=== PATIENT | male | born 1980 | race Caucasian/White ===

== ENCOUNTER 2017-01-25 17:45 | Emergency (ER) | payer OTHER | END 2017-01-25 18:38 | disposition home or self-care (01) | LOC: D.ER 17:45 | DX: S61.452A Open bite of left hand, initial encounter (principal); S61.451A Open bite of right hand, initial encounter; W54.0XXA Bitten by dog, initial encounter; Y93.89 Activity, other specified; Y92.89 Other specified places as the place of occurrence of the external cause; T14.8 Other injury of unspecified body region; F17.200 Nicotine dependence, unspecified, uncomplicated ==

== ENCOUNTER 2020-12-02 15:38 | Inpatient (IN) | payer SELFPAY ==
[~2020-12-02] VITALS: Ht 167.6 cm; Wt 75.0 kg
[2020-12-02 16:13] LABS: BASOPHILS 0.1 % (0-2); EOSINOPHILS 0.2 % (0-7); HEMATOCRIT 41.3 % (42.0-54.0); HEMOGLOBIN 13.3 g/dL (13.5-17.5); LYMPHOCYTES 3.2 % (15-50); MCH 26.7 pg (26.0-34.0); MCHC 32.2 g/dL (31.0-37.0); MCV 82.9 fL (80.0-100.0); MEAN PLATELET VOLUME 7.8 fL (7.4-10.4); MONOCYTES 0.4 % (2-11); NEUTROPHILS 96.1 % (40-80); PLATELET COUNT 307 10x3/uL (130-400); RBC 4.98 10x6/uL (4.20-6.10); RDW 14.1 % (11.5-14.5); WBC 9.6 10x3/uL (4.8-10.8)
[2020-12-02 16:16] LABS: UDS - AMPHET POSITIVE QUAL (NEGATIVE); UDS - BARB NEGATIVE QUAL (NEGATIVE); UDS - BENZO NEGATIVE QUAL (NEGATIVE); UDS - COCAINE NEGATIVE QUAL (NEGATIVE); UDS - OPIATE NEGATIVE QUAL (NEGATIVE); UDS - PCP NEGATIVE QUAL (NEGATIVE); UDS - THC NEGATIVE QUAL (NEGATIVE)
[2020-12-02 16:24] LABS: BILIRUBIN NEGATIVE (NEGATIVE); KETONE NEGATIVE mg/dL (< 1+); NITRITE NEGATIVE (NEGATIVE); PH 5.5 (5.0-8.0); UROBILINOGEN NORMAL mg/dL (< 2); WHITE CELLS - URINE 2 HPF (0-1)
[2020-12-02 16:25] LABS: CALC OSMOLALITY 275 mosm/kg (275-300); CALCIUM 9.1 mg/dL (8.5-10.1); CARBON DIOXIDE 25.2 mmol/L (21.0-32.0); CHLORIDE - SERUM 104 mmol/L (98-107); CREATININE - SERUM 1.6 mg/dL (0.6-1.3); GLUCOSE 110 mg/dL (74-106); POTASSIUM - SERUM 3.6 mmol/L (3.5-5.1); SODIUM 137 mmol/L (136-145); UREA NITROGEN 15 mg/dL (7-18); eGFR NON AFRICAN AMERICAN 51 mL/min (90-120)
[2020-12-02 16:30] LABS: INR 1.18 (0.85-1.17); PROTIME 13.9 SECONDS (11.6-15.0)
[2020-12-02 16:31] LABS: APTT 26.5 SECONDS (22.8-39.4)
[2020-12-02 16:43] LABS: ALBUMIN 2.5 g/dL (3.4-5.0); ALKALINE PHOSPHATASE 250 U/L (30-120); ALT (SGPT) 142 U/L (10-68); BILIRUBIN - TOTAL 0.51 mg/dL (0.2-1.3); CKMB 1.4 U/L (0.0-3.6); CREATINE KINASE 105 UL (21-232); PROTEIN - SERUM 5.8 g/dL (6.4-8.2); TROPONIN-I < 0.017 ng/mL (0.000-0.060)
[2020-12-02 18:16] VITALS: BP 96/61
[2020-12-02 18:30] LABS: INFLUENZA TYPE A NEGATIVE (NEGATIVE); INFLUENZA TYPE B NEGATIVE (NEGATIVE); SARS-CoV-2 ANTIGEN NEGATIVE- SARS-COV-2 (NEGATIVE)
[2020-12-02 19:07] VITALS: BP 100/66
[2020-12-02 20:00] VITALS: BP 96/54
[2020-12-02 20:13] LABS: MAGNESIUM - SERUM 1.4 mg/dL (1.8-2.4); THYROID STIMULATING HORMONE 6.03 uIU/mL (0.36-3.74)
[2020-12-02 21:00] VITALS: BP 94/50
--- NOTE | 2020-12-02 21:20 | NUR ---
PT TO [facility].
--- NOTE | 2020-12-02 21:41 | NUR ---
PT RETURNED FROM [facility].
[2020-12-02 21:45] VITALS: BP 103/61
[2020-12-03] VITALS (12 sets, daily range): BP systolic 84–106; BP diastolic 43–71; Ht 167.6 cm; Wt 75.0 kg
--- NOTE | 2020-12-03 04:32 | NUR ---
PT HAS NOT VOIDED SINCE BEFORE 1900 ON 12/03/20. STATES HE DOES NOT FEEL ANY URGE TO VOID. BLADDER SCAN DONE AND SHOWS 304ML IN BLADDER. PT STATES HE FEELS LIKE HE CAN URINATE AT THAT TIME. PRODUCED 300ML URINE.
[2020-12-03 04:48] LABS: MCH 26.2 pg (26.0-34.0); MCHC 31.1 g/dL (31.0-37.0); MCV 84.3 fL (80.0-100.0); MEAN PLATELET VOLUME 8.6 fL (7.4-10.4); RDW 14.3 % (11.5-14.5)
[2020-12-03 04:59] LABS: ALKALINE PHOSPHATASE 96 U/L (30-120); BILIRUBIN - TOTAL 0.37 mg/dL (0.2-1.3); CARBON DIOXIDE 21.7 mmol/L (21.0-32.0); CHLORIDE - SERUM 112 mmol/L (98-107); CREATININE - SERUM 1.4 mg/dL (0.6-1.3); GLUCOSE 85 mg/dL (74-106); MAGNESIUM - SERUM 1.1 mg/dL (1.8-2.4); SODIUM 142 mmol/L (136-145); eGFR NON AFRICAN AMERICAN 59 mL/min (90-120)
[2020-12-03 05:00] LABS: HEMATOCRIT 31.6 % (42.0-54.0); HEMOGLOBIN 9.8 g/dL (13.5-17.5); PLATELET COUNT 224 10x3/uL (130-400); RBC 3.75 10x6/uL (4.20-6.10); WBC 31.2 10x3/uL (4.8-10.8)
[2020-12-03 05:17] LABS: LYMPHOCYTES 7 % (15-50); MONOCYTES 1 % (2-11); NEUTROPHILS 85 % (40-80); PLATELET ESTIMATE NORMAL
[2020-12-03 05:19] LABS: CALC OSMOLALITY 283 mosm/kg (275-300); UREA NITROGEN 19 mg/dL (7-18)
[2020-12-03 05:20] LABS: ALBUMIN 1.5 g/dL (3.4-5.0); ALT (SGPT) 99 U/L (10-68); CALCIUM 6.2 mg/dL (8.5-10.1); PROTEIN - SERUM 4.1 g/dL (6.4-8.2)
--- NOTE | 2020-12-03 05:35 | NUR ---
RECIEVED CRITIAL RESULT: CALCIUM 6.2. Kim DUBOSE APN NOTIFIED VIA PHONE. SHE ADVISED PT WOULD FOLLOW UP WITH RENAL THIS AM AND THEY WOULD GET IT CORRECTED.
[2020-12-03 05:47] LABS: CKMB 0.7 U/L (0.0-3.6); CREATINE KINASE 63 UL (21-232)
--- NOTE | 2020-12-03 15:16 | NUR ---
ZOSYN PIGGYBACK INFUSION COMPLETED AT 0940, VANCOMYCIN INFUSION COMPLETED AT 1000, AND NS INFUSION STOPPED IN ER AT 1520 AND CONT'D IN HOSPITAL.
--- NOTE | 2020-12-03 17:11 | NUR ---
ARRIVE TO ROOM VIA WHEELCHAIR FROM ER. ALERT AND ORIENTED X4. AMBULATES TO BED. GAIT STEADY. SCDs ON. IV NOT ON PUMP. INITIATE IV INFUSION ORDERED. NO SIGNS OF DISTRESS. CONTINUE ADMISSION PROCESS AND SAFETY PRECAUTIONS.
[2020-12-04] VITALS: BP 103/62
--- NOTE | 2020-12-04 03:29 | NUR ---
I have reviewed this patient and I concur with the Shift Assessment completed by the Licensed Practical Nurse today this shift.
[2020-12-04 04:00] VITALS: BP 107/66
--- NOTE | 2020-12-04 07:00 | NUR ---
Lying in bed with eyes closed, respirations slow/deep/evem. rouses easily with verbal stimulus, denies pain/other discomfort at this time, call light/phone/water within reach, no s/s of acute distress observed.
[2020-12-04 08:01] VITALS: BP 114/75
[2020-12-04 08:14] LABS: BASOPHILS 0.5 % (0-2); HEMATOCRIT 35.1 % (42.0-54.0); LYMPHOCYTES 6.5 % (15-50); MCHC 31.4 g/dL (31.0-37.0); MCV 82.8 fL (80.0-100.0); MEAN PLATELET VOLUME 9.1 fL (7.4-10.4); MONOCYTES 5.8 % (2-11); NEUTROPHILS 86.2 % (40-80); PLATELET COUNT 265 10x3/uL (130-400); RBC 4.25 10x6/uL (4.20-6.10); RDW 15.1 % (11.5-14.5); WBC 28.9 10x3/uL (4.8-10.8)
[2020-12-04 08:29] LABS: ANION GAP 10.8 mmol/L (8-16); BILIRUBIN - TOTAL 0.28 mg/dL (0.2-1.3); CALCIUM 9.7 mg/dL (8.5-10.1); CARBON DIOXIDE 24.6 mmol/L (21.0-32.0); CREATININE - SERUM 1.5 mg/dL (0.6-1.3); MAGNESIUM - SERUM 1.9 mg/dL (1.8-2.4); PHOSPHOROUS 2.1 mg/dL (2.5-4.9); POTASSIUM - SERUM 4.4 mmol/L (3.5-5.1); PROTEIN - SERUM 5.6 g/dL (6.4-8.2); VANCOMYCIN - RANDOM 16.8 ug/mL (10.0-20.0)
[2020-12-04 10:12] LABS: HEPATITIS C ANTIBODY >11.0 S/CO RAT (0.0-0.9)
[2020-12-04 12:01] VITALS: BP 103/64
[2020-12-04 15:50] VITALS: BP 113/77
[2020-12-04 16:15] LABS: URIC ACID 5.6 mg/dL (2.6-7.2)
--- NOTE | 2020-12-04 16:30 | NUR ---
Pt states he wants to check out AMAFELIPE notified
--- NOTE | 2020-12-04 16:45 | NUR ---
AMA papers signed and heather called.
--- NOTE | 2020-12-04 16:45 | NUR ---
Explained the dangers of leaving AMA such as worsening of condition, missing needed meds/treatments and even , pt states he wants to go home.
--- NOTE | 2020-12-04 17:45 | NUR ---
Pt DC'd AMA at this time via ambulation accompanied by hospital staff and family member, no s/s of acute distress observed at this time.
--- NOTE | 2020-12-04 17:48 | MORECARE ---
CASE MANAGEMENT DISCHARGE SUMMARY PATIENT: LISANDRA AUGUSTIN UNIT: [id number] ADM DATE: 12/02/20 AGE: 40 : 78 SEX: M ROOM/BED: D.210 AUTHOR: IVAN,DOC PHYSICIAN: REFERRING PHYSICIAN: SILVINA AGUIRRE DO DATE OF SERVICE: 12/04/20 Case Management Discharge Planning Summary DCP REVIEW SUMMARY ANTICIPATED D/C DATE: EXPECTED LOS : CASE STATUS: DCP Initiated INITIAL REVIEW: 12/02/2020 INITIAL REVIEWER: Pia Todd FINAL DISCHARGE DISPOSITION: 07 : Left AMA or Discontinued Care FINAL REVIEWER: Pia Todd FINAL REVIEW DATE: 12/04/2020 DCP [employer] Questions & Answers QUESTION: ANSWER : PATIENT: LISANDRA AUGUSTIN ENCOUNTER: [id number] MEDICAL RECORD#: [id number] ADMISSION DATE: 12/02/2020 DISCHARGE DATE: ATTENDING MD: SILVINA PIERCE : AGE: 40 MARITAL STATUS: S DC PLAN ID: [id number] FACILITY: [facility] PRINTED ON: 12/04/20 17:48 CT All edits/amendments must be made on the electronic document DICTATION DATE: 12/04/201747 CHARACTER ARTIST: NAMITA 12/04/201747 RPT#: [id number] DC DATE: STATUS: ADM IN [facility] [address] [place] [address] END OF REPORT
--- NOTE | 2020-12-06 09:58 | MORECARE ---
CASE MANAGEMENT DISCHARGE SUMMARY PATIENT: LISANDRA AUGUSTIN UNIT: [id number] ADM DATE: 12/02/20 AGE: 40 : 78 SEX: M ROOM/BED: D.210 AUTHOR: IVAN,DOC PHYSICIAN: REFERRING PHYSICIAN: SILVINA AGUIRRE DO DATE OF SERVICE: 12/06/20 Case Management Discharge Planning Summary DCP REVIEW SUMMARY ANTICIPATED D/C DATE: EXPECTED LOS : CASE STATUS: DCP Initiated INITIAL REVIEW: 12/02/2020 INITIAL REVIEWER: Pia Todd FINAL DISCHARGE DISPOSITION: 07 : Left AMA or Discontinued Care FINAL REVIEWER: Pia Todd FINAL REVIEW DATE: 12/04/2020 DCP [employer] Questions & Answers QUESTION: ANSWER : PATIENT: LISANDRA AUGUSTIN ENCOUNTER: [id number] MEDICAL RECORD#: [id number] ADMISSION DATE: 12/02/2020 DISCHARGE DATE: 12/04/2020 ATTENDING MD: SILVINA PIERCE : AGE: 40 MARITAL STATUS: S DC PLAN ID: [id number] FACILITY: [facility] PRINTED ON: 12/06/20 9:58 CT All edits/amendments must be made on the electronic document DICTATION DATE: 12/06/20957 SHOWER ENCLOSURE INSTALLER: NAMITA 12/06/20957 RPT#: [id number] DC DATE:12/04/20 STATUS: DIS IN [facility] [address] [place] [address] END OF REPORT
[2020-12-06 10:13] LABS: ANA REFLEX - DIRECT Negative (Negative)
== END 2020-12-04 17:45 | disposition left against medical advice (07) | DRG 871 ==
LOC: D.ER 15:38 → D.M2 18:16 → D.EDHOLD 18:16 → D.M2 12-03 13:47
PROVIDERS: Family Medicine; Internal Medicine Pulmonary Disease; ADMIT Family Medicine; ATTEND Family Medicine
DX: A41.9 Sepsis, unspecified organism (principal); G93.41 Metabolic encephalopathy; N17.9 Acute kidney failure, unspecified; I82.611 Acute embolism and thrombosis of superficial veins of right upper extremity; D64.9 Anemia, unspecified; R74.01 Elevation of levels of liver transaminase levels; Z20.822 Contact with and (suspected) exposure to COVID-19; E86.0 Dehydration; F15.10 Other stimulant abuse, uncomplicated; E87.6 Hypokalemia; E83.42 Hypomagnesemia; I27.20 Pulmonary hypertension, unspecified; I08.1 Rheumatic disorders of both mitral and tricuspid valves